=== PATIENT | female | born 1990 | race American Indian/Alaskan Native ===

== ENCOUNTER 2024-04-28 05:23 | Emergency (ER) | payer MEDICAID ==
[2024-04-28] MEDS: Lactated Ringers 1,000 ML IV STA (08:11)
[2024-04-28] MEDS: Ondansetron 4 MG/2 ML SDV IVPUSH ONE (08:12)
[2024-04-28] MEDS: Acetaminophen 500 MG Tab PO ONE (08:12)
[2024-04-28 10:40] VITALS: BP 174/79; PULSE 99
== END 2024-04-28 10:31 | disposition home or self-care (01) ==
LOC: MW.ED 05:23
DX: J10.1 Influenza due to other identified influenza virus with other respiratory manifestations (principal); Z88.0 Allergy status to penicillin; Z88.8 Allergy status to other drugs, medicaments and biological substances; Z79.899 Other long term (current) drug therapy
CPT/HCPCS: 81025; 87428; 87651; 96361; 96374; 99284; A9270; J2405; J7120; 99283